=== PATIENT | male | born 1985 | race Caucasian/White ===

== ENCOUNTER 2018-01-04 02:14 | Emergency (ER) | payer BC ==
[~2018-01-04] VITALS: Ht 175.3 cm; Wt 88.5 kg
[2018-01-04 02:17] VITALS: BP 128/83
== END 2018-01-04 02:47 | disposition home or self-care (01) ==
LOC: ER 02:17
DX: L50.8 Other urticaria (principal); F32.9 Major depressive disorder, single episode, unspecified; F17.200 Nicotine dependence, unspecified, uncomplicated; Z88.8 Allergy status to other drugs, medicaments and biological substances
CPT/HCPCS: 99281; A4606; Z7502; Z7610